=== PATIENT | male | born 1945 | race Asian ===

== ENCOUNTER 2019-03-14 18:23 | Emergency (ER) | payer BC ==
[~2019-03-14] VITALS: Ht 185.4 cm; Wt 79.4 kg
[2019-03-14 18:37] VITALS: BP_SYST 164
--- NOTE | 2019-03-14 19:09 | NUR ---
Patient to ER bed 07 to gown for evaluation. Side rails up.
--- NOTE | 2019-03-14 19:15 | NUR ---
Patient complains of right 2nd finger laceration. Pt states he closed the door and it smashed his 2nd digit. Noted laceration to tip of finger. Finger was covered in gauze. Minimal bleeding noted. Per patient this happened about an hour ago. No other injuries/complaints per patient or noted.
--- NOTE | 2019-03-14 19:58 | NUR ---
ER Dr. Trevino at bedside examining patient.
[2019-03-14] MEDS ORDERED: LIDOCAINE 1% 10 MG/ML, 20 ML MDV INJ ONE (20:30)
[2019-03-14] MEDS ORDERED: LIDOCAINE 1%, 20 ML MDV 20 ML ONE (20:47)
[2019-03-14] MEDS ORDERED: MORPHINE 2 MG/ML INJ. SYRINGE IM ONE (21:30)
[2019-03-14] MEDS ORDERED: BACITRACIN ZINC 15 GM TOPICAL OINTMENT TP ONE (21:30)
[2019-03-14] MEDS ORDERED: CEPHALEXIN 500 MG CAPSULE PO ONE (21:30)
[2019-03-14] MEDS ORDERED: DIPH-TET-PERTUS Vaccine 0.5 ML VIAL (ADACEL) I.M. ONE (21:30)
[2019-03-14] MEDS ORDERED: BACITRACIN 1 GM OINT TP ONE (21:47)
--- NOTE | 2019-03-14 21:50 | NUR ---
Patient has a U-shaped laceration to right 2nd digit. Dr. Trevino applied 8sutures using sterile technique. Edges well approximated. Site cleansed with betadine and normal saline. Dressing of non-adherent applied to site. No bleeding noted. Pt tolerated well.
[2019-03-14 23:00] VITALS: BP_SYST 151
--- NOTE | 2019-03-14 23:00 | NUR ---
Patient given written and verbal discharge instructions and verbalizes understanding. ER MD discussed with patient the results and treatment provided. Patient in stable condition. ID arm band removed. Rx of Keflex and [place] given. Patient educated on pain management and to follow up with PMD. Pain Scale 0. Opportunity for questions provided and answered. Medication side effect fact sheet provided.
== END 2019-03-14 23:00 | disposition home or self-care (01) ==
LOC: SED 18:23
DX: S61.210A Laceration without foreign body of right index finger without damage to nail, initial encounter (principal); W23.1XXA Caught, crushed, jammed, or pinched between stationary objects, initial encounter; Y93.89 Activity, other specified; Y92.89 Other specified places as the place of occurrence of the external cause; Y99.8 Other external cause status
CPT/HCPCS: 12001; 73130; 90471; 90715; 96372; 99283; J2001; J2270

== ENCOUNTER 2019-03-25 13:13 | Emergency (ER) | payer BC ==
[~2019-03-25] VITALS: Ht 185.4 cm; Wt 79.4 kg
[2019-03-25 14:41] VITALS: BP_SYST 166
[2019-03-25 14:50] VITALS: BP_SYST 166
== END 2019-03-25 14:51 | disposition home or self-care (01) ==
LOC: SED 13:13
DX: S61.210A Laceration without foreign body of right index finger without damage to nail, initial encounter (principal); R03.0 Elevated blood-pressure reading, without diagnosis of hypertension; Z48.02 Encounter for removal of sutures; W23.0XXA Caught, crushed, jammed, or pinched between moving objects, initial encounter; Y93.89 Activity, other specified; Y92.89 Other specified places as the place of occurrence of the external cause; Y99.8 Other external cause status
CPT/HCPCS: 99283